=== PATIENT | female | born 1930 | race Caucasian/White ===

== ENCOUNTER 2017-02-28 18:29 | Emergency (ER) | payer MEDICARE ==
[~2017-02-28] VITALS: Ht 170.2 cm; Wt 61.2 kg
[~2017-02-28 18:29] MED LIST: COZAAR50 MG PO; LISINOPRIL-HCT1 EAC1 PO; METOPROLOL TART50 MG PO
[2017-02-28] MEDS ORDERED: CLOTRIMAZOLE AF15 G1 TOP (20:46)
== END 2017-02-28 21:01 | disposition home or self-care (01) ==
LOC: ED 18:29
DX: B37.2 Candidiasis of skin and nail (principal); I10 Essential (primary) hypertension; Z79.899 Other long term (current) drug therapy
CPT/HCPCS: 99283

== ENCOUNTER 2018-02-14 09:44 | Emergency (ER) | payer MEDICARE ==
[~2018-02-14] VITALS: Ht 170.2 cm; Wt 61.2 kg
[~2018-02-14 09:44] MED LIST changes: +CLOTRIMAZOLE AF15 G1 TOP
[2018-02-14] MEDS ORDERED: HYDROCHLOROTHIA25 MG PO (10:16)
[2018-02-14] MEDS ORDERED: PERCOCET 5-3251 EACH PO (10:16)
[2018-02-14] MEDS ORDERED: GAVILAX17 GM PO (10:17)
--- NOTE | 2018-02-14 21:12 | EKG ---
[facility] [address] [facility] [place] [address] Signed Sinus bradycardia with marked sinus arrhythmia with frequent AV dual-paced complexes and with frequent premature ventricular complexes Right bundle branch block Left anterior fascicular block Bifascicular block Voltage criteria for left ventricular hypertrophy Abnormal ECG Confirmed by RYAN PENA MD ([id number] on 02/14/2018 9:12:20 PM Electronically Signed By: RYAN PENA MD 02/14/18 2112 PATIENT NAME: SHIKHA URENA Electrocardiogram DATE OF : 30 PHYSICIAN: RYAN PENA MD REPORT #: [id number] REPORT IS CONFIDENTIAL AND NOT TO BE RELEASED WITHOUT AUTHORIZATION
== END 2018-02-14 13:56 | disposition home or self-care (01) ==
LOC: ED 09:44
DX: I10 Essential (primary) hypertension (principal); Z79.899 Other long term (current) drug therapy
CPT/HCPCS: 80053; 84484; 85025; 93005; 93010; 99284